=== PATIENT | female | born 1985 | race Asian ===

== ENCOUNTER 2018-10-16 11:48 | Emergency (ER) | payer OTHER ==
[2018-10-16 12:02] VITALS: BP 103/60
[2018-10-16 12:14] LABS: BILIRUBIN,URINE NEGATIVE (NEGATIVE); GLUCOSE, URINE (UA) NEGATIVE (NEGATIVE); KETONES,URINE (UA) NEGATIVE (NEGATIVE); LEUKOCYTE ESTERASE, URINE NEGATIVE (NEGATIVE); NITRITE,URINE NEGATIVE (NEGATIVE); OCCULT BLOOD,URINE TRACE-INTA (NEGATIVE); PH,URINE 6.5 PH (5.0-7.5); PROTEIN,URINE NEGATIVE (NEGATIVE); UROBILINOGEN,URINE 0.2 (NORMAL) E.U./dL (NORMAL)
[2018-10-16 12:17] LABS: CLARITY,URINE CLEAR (CLEAR)
[2018-10-16 12:26] LABS: BASOPHILS % (AUTO) 0.9 %; EOSINOPHILS % (AUTO) 0.5 %; LYMPHOCYTES % (AUTO) 20.9 %; MEAN CORPUSCULAR HEMOGLOBIN 30.7 pg (27.0-31.0); MEAN CORPUSCULAR HGB CONC 33.6 g/dL (32.0-36.0); MEAN CORPUSCULAR VOLUME 91.5 fL (81.0-99.0); MEAN PLATELET VOLUME 7.4 fL (7.9-10.8); MONOCYTES # (AUTO) 0.4 10^3/uL (0.0-1.0); MONOCYTES % (AUTO) 9.4 %; NEUTROPHILS # (AUTO) 3.3 10^3/uL (1.5-6.6); NEUTROPHILS % (AUTO) 68.3 %; PLT - PLATELET COUNT 213 10^3/uL (130-450); RED BLOOD COUNT 4.22 10^6/uL (4.20-5.40); RED CELL DISTRIBUTION WIDTH 13.6 % (12.0-15.0); WHITE BLOOD COUNT 4.8 x10^3/uL (4.8-10.8)
[2018-10-16 12:38] LABS: ALBUMIN 4.5 g/dL (3.2-5.5); ALBUMIN/GLOBULIN RATIO 1.6 (1.0-2.2); BILIRUBIN,TOTAL 0.9 mg/dL (0.2-1.0); CALCIUM 9.2 mg/dL (8.5-10.3); CREATININE 0.4 mg/dL (0.4-1.0); TOTAL PROTEIN 7.4 g/dL (6.7-8.2)
[2018-10-16] MEDS ORDERED: BUTALB/ACETAM/CAFF 50/325/40MG TABLET PO STA (13:02)
[2018-10-16] MEDS ORDERED: METOCLOPRAMIDE 10 MG TABLET PO STA (13:06)
--- NOTE | 2018-10-16 13:57 | Ultrasound Report ---
Reason: RUQ pain Procedure Date: 10/16/2018 Accession Number: [id number] / [id number] Procedure: US - Abdomen Limited CPT Code: FULL RESULT: EXAM: ABDOMEN ULTRASOUND LIMITED, RUQ EXAM DATE: 10/16/2018 01:33 PM. CLINICAL HISTORY: Right upper quadrant pain. COMPARISON: None. TECHNIQUE: Real-time scanning was performed with static images obtained. FINDINGS: Liver: Normal in size and echotexture. The right lobe of the liver measures at least 15.3 cm. Main portal vein flow: Hepatopetal. Gallbladder: Normal. No stones, wall thickening, or sonographic Kelly's sign. Biliary System: CBD measures 4 mm. No intrahepatic or extrahepatic ductal dilatation. Other: None. IMPRESSION: No biliary ductal dilation and no evidence of cholecystitis. RADIA
--- NOTE | 2018-10-16 14:06 | ED Physician Documentation ---
History of Present Illness - Stated complaint Stated Complaint: ABD PX,CARPIO,12 WEEKS PREG - Chief complaint Chief Complaint: Abd Pain - History obtained from History obtained from: Patient - History of Present Illness Timing: How many days ago (several days) Pain level max: 6 Pain level now: 5 - Additonal information Additional information: 33-year-old female presents to the emergency department right upper quadrant abdominal pain intermittently for the past few days. Also has intermittent headaches, usually frontal. She did get headaches before as well, but seems to have an increased frequency recently. No fevers. No trauma. No vomiting. Does have nausea. No diarrhea. No vaginal bleeding or discharge. She is approximately 12 weeks . 4 para 3. Review of Systems Constitutional: denies: Fever, Chills Skin: denies: Rash Musculoskeletal: denies: Neck pain, Back pain Neurologic: denies: Focal weakness, Numbness, Headache PD PAST MEDICAL HISTORY - Past Medical History Past Medical History: Yes Endocrine/Autoimmune: HyPOthyroidism - Past Surgical History Past Surgical History: No - Present Medications Home Medications: Ambulatory Orders Medication Instructions Recorded Confirmed Butalb/Acetaminophen/Caffeine 1 cap PO Q6H PRN #4 capsule 10/16/18 [Fioricet 50-300-40 mg Capsule] Levothyroxine Sodium [Synthroid] 137 mcg PO DAILY 10/16/18 10/16/18 Pnv No.95/Ferrous Fum/Folic AC 1 each PO DAILY 10/16/18 10/16/18 [ Caplet] - Allergies Allergies/Adverse Reactions: Allergies Allergy/AdvReac Type Severity Reaction Status Date / Time No Known Drug Allergies Allergy Verified 10/16/18 12:02 - Social History Does the pt smoke?: No Smoking Status: Never smoker Does the pt drink ETOH?: No Does the pt have substance abuse?: No PD ED PE NORMAL - Vitals Vital signs reviewed: Yes - General General: Alert and oriented X 3, No acute distress, Well developed/nourished - HEENT HEENT: Atraumatic, PERRL, EOMI, Ears normal, Moist mucous membranes - Neck Neck: Supple, no meningeal sign - Cardiac Cardiac: RRR, Strong equal pulses - Respiratory Respiratory: No respiratory distress, Clear bilaterally - Abdomen Abdomen: Soft, Non tender, Non distended - Derm Derm: Warm and dry - Neuro Neuro: Alert and oriented X 3, it lead 2-12 intact, No motor deficit, No sensory deficit, Normal speech Eye Opening: Spontaneous Motor: Obeys Commands Verbal: Oriented GCS Score: 15 - Psych Psych: Normal mood, Normal affect Results - Vitals Vitals: Vital Signs - 24 hr 10/16/18 10/16/18 11:59 15:10 Temperature 35.8 C L Heart Rate 95 67 Respiratory 15 14 Rate Blood Pressure 103/60 O2 Saturation 100 98 Oxygen O2 Source Room air - Labs Labs: Laboratory Tests 10/16/18 10/16/18 10/16/18 12:07 12:20 12:20 WBC 4.8 RBC 4.22 Hgb 13.0 Hct 38.6 MCV 91.5 MCH 30.7 MCHC 33.6 RDW 13.6 Plt Count 213 MPV 7.4 L Neut # (Auto) 3.3 Lymph # (Auto) 1.0 L [place] # (Auto) 0.4 Eos # (Auto) 0.0 Baso # (Auto) 0.0 Absolute Nucleated RBC 0.00 Nucleated RBC % 0.0 Sodium 136 Potassium 3.5 Chloride 102 Carbon Dioxide 26 Anion Gap 8.0 BUN 7 Creatinine 0.4 Estimated GFR (MDRD) 183 Glucose 92 Calcium 9.2 Total Bilirubin 0.9 AST 16 ALT 11 Alkaline Phosphatase 32 L Total Protein 7.4 Albumin 4.5 Globulin 2.9 Albumin/Globulin Ratio 1.6 Lipase 26 Urine Color YELLOW Urine Clarity CLEAR Urine pH 6.5 Ur Specific [place] 1.020 Urine Protein NEGATIVE Urine Glucose (UA) NEGATIVE Urine Ketones NEGATIVE Urine Occult Blood TRACE-INTA Urine Nitrite NEGATIVE Urine Bilirubin NEGATIVE Urine Urobilinogen 0.2 (NORMAL) Ur Leukocyte Esterase NEGATIVE Ur Microscopic Review NOT INDICATED Urine Culture Comments NOT INDICATED - Rads (name of study) Right upper quadrant ultrasound. Radiology: Prelim report reviewed, EMP read contemporaneously, See rad report (No acute abnormalities.) PD MEDICAL DECISION MAKING - ED course Complexity details: reviewed results, re-evaluated patient, considered differential, d/w patient ED course: Headache resolved with Fioricet. No evidence of subarachnoid hemorrhage, cavernous sinus thrombosis. No evidence of eclampsia or preeclampsia. Right upper quadrant pain is concerning for potential cholecystitis, therefore ultrasound was performed, no acute abnormalities. Normal lab testing. Normal urine. Will follow up with her doctor for further evaluation and care. She is well-appearing, nontoxic. Afebrile. Patient counseled regarding signs and symptoms for which I believe and urgent re-evaluation would be necessary. Patient with good understanding of and agreement to plan and is comfortable going home at this time This document was made in part using voice recognition software. While efforts are made to proofread this document, sound alike and grammatical errors may occur. Departure - Departure Disposition: 01 Home, Self Care Clinical Impression: Abdominal pain affecting Headache Qualifiers: Headache type: unspecified Headache chronicity pattern: acute headache Intractability: not intractable Qualified Code(s): R51 - Headache Condition: Good Instructions: ED Abdominal Pain Unkn Cause, ED Cephalgia Unspecified Follow-Up: Stan West ARNP [Primary Care Provider] - Within 1 week Prescriptions: Butalb/Acetaminophen/Caffeine [Fioricet 50-300-40 mg Capsule] 1 cap PO Q6H PRN #4 capsule PRN Reason: headaches Comments: Use the medications as prescribed. Fioricet should be used sparingly in for headaches. Return if you worsen. Discharge Date/Time: 10/16/18 15:11
== END 2018-10-16 15:11 | disposition home or self-care (01) ==
LOC: ED 11:48
DX: O26.891 Other specified pregnancy related conditions, first trimester (principal); Z3A.12 12 weeks gestation of pregnancy; R10.10 Upper abdominal pain, unspecified; R51 Headache; E03.9 Hypothyroidism, unspecified
CPT/HCPCS: 36415; 76705; 80053; 81003; 83690; 85025; 99283; A9270; 81001; 87086

== ENCOUNTER 2019-04-26 02:04 | Inpatient (IN) | payer OTHER ==
[2019-04-26] MEDS ORDERED: ONDANSETRON 4 MG/2 ML VIAL IVP PRN ×2 (02:55→07:48)
[2019-04-26] MEDS ORDERED: fentaNYL 100 MCG/2 ML VIAL IVP PRN ×2 (02:55→07:47)
[2019-04-26] MEDS ORDERED: SODIUM CHLORIDE FLUSH 0.9% 10 ML SYRINGE IVP PRN ×2 (02:55→07:48)
[2019-04-26] MEDS ORDERED: LACTATED RINGERS 1,000 ML IV SCH ×2 (03:00→08:00)
[2019-04-26] MEDS ORDERED: OXYTOCIN/DEXTROSE 5 % 30 UNIT/500 ML BAG IV ONE (03:25)
[2019-04-26 04:19] LABS: BASOPHILS % (AUTO) 0.7 %; EOSINOPHILS # (AUTO) 0.6 10^3/uL (0.0-0.7); HGB - HEMOGLOBIN 10.4 g/dL (12.0-16.0); LYMPHOCYTES # (AUTO) 1.1 10^3/uL (1.5-3.5); LYMPHOCYTES % (AUTO) 18.4 %; MEAN CORPUSCULAR HEMOGLOBIN 28.7 pg (27.0-31.0); MEAN CORPUSCULAR HGB CONC 32.4 g/dL (32.0-36.0); MEAN CORPUSCULAR VOLUME 88.4 fL (81.0-99.0); MEAN PLATELET VOLUME 10.3 fL (7.9-10.8); MONOCYTES # (AUTO) 0.7 10^3/uL (0.0-1.0); MONOCYTES % (AUTO) 10.7 %; NEUTROPHILS # (AUTO) 3.7 10^3/uL (1.5-6.6); NEUTROPHILS % (AUTO) 59.9 %; PLT - PLATELET COUNT 202 10^3/uL (130-450); RED BLOOD COUNT 3.63 10^6/uL (4.20-5.40); RED CELL DISTRIBUTION WIDTH 12.7 % (12.0-15.0); WHITE BLOOD COUNT 6.1 x10^3/uL (4.8-10.8)
--- NOTE | 2019-04-26 04:30 | HISTORY & PHYSICAL EXAMINATION ---
Admit History - Visit Reason Visit Reason: Contractions - : 4 Parity: 3 Premature: 0 Ectopic: 0 : 0 Care: positive: Other (Womens Care) Risk/History: positive: Other (Hypothyroidism) Complications This : positive: None Smoking Status: Never smoker - Mother's Labs Mother's Blood Type: positive: AB Mother's RH: positive: Positive GBS: positive: Group B Step Negative Rubella Status: positive: Immune - Other Maternal History Other Maternal History: Chief complaint: Contractions History chief complaint: Meds/Allgy - Home Medications Home Medications: Ambulatory Orders Medication Instructions Recorded Confirmed Butalb/Acetaminophen/Caffeine 1 cap PO Q6H PRN #4 capsule 10/16/18 [Fioricet 50-300-40 mg Capsule] Levothyroxine Sodium [Synthroid] 137 mcg PO DAILY 10/16/18 10/16/18 Pnv No.95/Ferrous Fum/Folic AC 1 each PO DAILY 10/16/18 10/16/18 [ Caplet] - Allergies Allergies/Adverse Reactions: Allergies Allergy/AdvReac Type Severity Reaction Status Date / Time No Known Drug Allergies Allergy Verified 10/16/18 12:02 Review of Systems - Constitutional Constitutional: denies: Fatigue, Fever, Chills, Malaise, Weakness - Eyes Eyes: denies: Pain, Irritation, Amaurosis, Blurred vision, Spots in vision, Field loss - Ears, Nose & Throat Ears, Nose & Throat: denies: Ear pain, Hearing loss, Hearing aids, Tinnitus, Vertigo, Nasal pain, Dentures, Sore throat, Hoarseness, Mouth lesions - Cardiovascular Cariovascular: denies: Irregular heart rate, Palpitations, Chest pain, Edema, Lightheadedness, Syncope - Respiratory Respiratory: denies: Cough, Sputum production, Wheezing, Snoring, Hemoptysis, Orthopnea - Gastrointestinal Gastrointestinal: denies: Abdominal pain, Abdominal distention, Diarrhea, Change in bowel habits, Rectal bleeding, Black stools - Genitourinary Genitourinary: denies: Dysuria, Urgency, Hematuria, Incontinence, Flank pain - Musculoskeletal Musculoskeletal: denies: Muscle pain, Muscle aches, Stiffness, Limited range of motion, Gout - Integumentary Integumentary: denies: Rash, Pruritis, Lesions, Lumps - Neurological Neurological: denies: General weakness, Focal weakness, Headache, Dizziness, Numbness - Psychiatric Psychiatric: denies: Depression, Anxiety, Suicidal, Delusions, Hallucinations - Endocrine Endocrine: denies: Polyuria, Polydypsia, Polyphagia, Intolerance to cold, Intolerance to heat - Hematologic/Lymphatic Hematologic/Lymphatic: denies: Anemia, Bruising, Petechiae, Blood clots, Lymphadenopathy Physical - Abdominal Exam Vital Signs: Temp Pulse Resp BP Pulse Ox 36.4 C L 75 22 101/59 L 04/26/19 02:21 04/26/19 02:21 04/26/19 02:21 04/26/19 02:21 Contraction Frequency (min/apart): 4 Contraction Intensity: positive: Strong Uterine Resting Tone: positive: Soft - Monitoring Heart Rate Baseline: 140's Strip Review: positive: Category I - Presentation Presentation: positive: Vertex - Vaginal Exam Membranes: positive: Membranes intact Dilation (in cm): 6 Effacement (%): 100 Station: positive: -1 Cervical Position: positive: Midposition Plan for Labor - Plan For Labor I expect patient to be DC'd or transferred within 96 hours.: Yes Plan for Labor: Impression: Active Labor at 39 weeks Hypothyroidism Plan: The patient is admitted in active labor with the usual labor orders. We ill continue to follow her closely
--- NOTE | 2019-04-26 05:47 | PROVIDER PROGRESS NOTE ---
Labor Progress Note - Uterine Monitoring Uterine Monitoring Mode: positive: External toco Contraction Frequency (min/apart): irregular Contraction Intensity: positive: Moderate to strong Uterine Resting Tone: positive: Soft - Monitoring Monitor Mode: positive: External ultrasound Heart Rate Baseline: 130's Accelerations: positive: Present, 15x15 Decelerations: positive: None Strip Review: positive: Category I - Vaginal Exam Dilation (in cm): 8 Effacement (%): 100 Station: -2 Cervical Position: Posterior - Labor Progress Note Labor Progress Note/Additional Text: Amniotomy with moderate amt clear fluid.
[2019-04-26] MEDS ORDERED: LIDOCAINE-MPF 1% 5 ML VIAL ONE (06:38)
[2019-04-26] MEDS ORDERED: LIDOCAINE-MPF 1% 30 ML VIAL ONE (06:39)
[2019-04-26] MEDS ORDERED: LIDOCAINE 1%-EPI 1:100000 20 ML MDV ONE (06:43)
[2019-04-26] MEDS ORDERED: OXYTOCIN/DEXTROSE 5 % 30 UNIT/500 ML BAG IV PRN ×2 (06:45→07:49)
[2019-04-26] MEDS ORDERED: HYDROcod/ACETAM 5/325 MG TABLET PO PRN ×2 (06:45→07:48)
--- NOTE | 2019-04-26 06:53 | DELIVERY NOTE ---
Delivery Note - Labor Labor: positive: Spontaneous - Delivery Method Delivery Method: positive: Spontaneous vaginal delivery - Presentation Presentation: positive: Vertex, BRI - left occiput anterior - Nuchal Cord Nuchal Cord: positive: None - Amniotic Fluid Description Amniotic Fluid Description: positive: Clear - Episiotomy Type Episiotomy Type: positive: None - Laceration Laceration: positive: None - Delivery Outcome Delivery Outcome: positive: Livebirth - [place] : positive: Placed in direct skin contact with mother sex: positive: Female : Apgars 9 and 10 - Cord Cord: positive: 3 vessels - Placenta Placenta: positive: Intact, Spontaneous - Estimated Blood Loss Estimated Blood Loss (in cc): 100 - Post Delivery Events Post Delivery Events: positive: No post delivery events - Delivery Comments (Free Text/Narrative) Delivery Comments (Free Text/Narrative): The patient reached complete with respect to cervical dilatation at 0629 hrs. She was pacheoc every 2 to 3 minutes. At 06 32 hours she delivered a viable female over an intact perineum. The placenta delivered intact with 3 vessels at 0636hrs. 30 units of Pitocin was given IV. The uterus was pacheco down firmly. The cervix and vaginal vault were inspected and found to be intact. The neonote is a viable female with Apgars of 9 and 10. Both the patient and the were allowed to remain in the LDRP in stable condition. EBL 100ml.
[2019-04-26] MEDS ORDERED: IBUPROFEN 600 MG TABLET PO SCH (07:00)
[2019-04-26] MEDS ORDERED: ACETAMINOPHEN 500 MG TABLET PO SCH (07:00)
[2019-04-26] MEDS ORDERED: LEVOTHYROXINE 75 MCG TABLET PO SCH (07:00)
--- NOTE | 2019-04-26 07:03 | Labor Flowsheet ---
Labor Flowsheet Datetime Report Generated by CPN: 04/26/2019 07:03 Datetime: 04/26/2019 07:01 VITAL SIGNS NBP Sys/Daniela/Mean (mmHg): 97 : 53 : 65 Pulse: 67 COMMUNICATION LaborFlag: Labor
[2019-04-26] MEDS: IBUPROFEN 600 MG TABLET PO SCH ×3 (07:42→20:25)
[2019-04-26] MEDS: LEVOTHYROXINE 75 MCG TABLET PO SCH (08:05)
[2019-04-26] MEDS ORDERED: SODIUM CHLORIDE FLUSH 0.9% 10 ML SYRINGE IVP SCH ×2 (09:00)
[2019-04-26] MEDS: ACETAMINOPHEN 500 MG TABLET PO SCH (16:39)
[2019-04-27] MEDS: ACETAMINOPHEN 500 MG TABLET PO SCH (00:06)
[2019-04-27] MEDS: IBUPROFEN 600 MG TABLET PO SCH ×2 (02:35→08:12)
--- NOTE | 2019-04-27 06:54 | PROVIDER PROGRESS NOTE ---
Subjective - Prog Note Date Prog Note Date: 04/27/19 Prog Note Time: 06:52 - Subjective Subjective: The patient is doing extremely well today. She is ambulating well is voiding without difficulty and breast-feeding without difficulty. She would like to be discharged home today. Objective - Vital Signs/Intake & Output Vital Signs: Vital Signs x48h Temp Pulse Resp BP Pulse Ox 04/27/19 02:53 36.5 C 54 L 18 93/47 L 100 Intake & Output: Intake & Output 04/24/19 04/25/19 04/26/19 04/27/19 23:59 23:59 23:59 23:59 Intake Total 480 Balance 480 - Objective Abdomen: positive: Non-tender (The uterus is firm and nontender approximately 2 fingerbreadths below the umbilicus. Lochia is light.), Nml bowel sounds - Lab Results Fish Bones: 04/26/19 04:10 Assessment/Plan - Problem List (1) Normal delivery at term Impression: Impression: Term delivery Plan: The patient will be discharged home. She was discharged home with both written and verbal instructions which included such things as: 1. No lifting, tampons douching or intercourse. 2. She is to report any temperatures greater than 100.4 or heavy vaginal bleeding 3. She is to continue her vitamins and increase her fluids 4. She is to use ibuprofen 600 mg p.o. 3 times daily PRN for pain. 5. She does not drive a car for the next 2 weeks 6. As long as she does well she will be seen in the office in 1 week for her initial visit.. She will be seen in the office in 6 weeks for her full visit.
[2019-04-27] MEDS: LEVOTHYROXINE 75 MCG TABLET PO SCH (07:58)
--- NOTE | 2019-04-27 08:15 | DISCHARGE SUMMARY ---
Physician: Steve Curtis DO DATE OF ADMISSION: 04/26/2019 DATE OF DISCHARGE: 04/27/2019 ADMITTING DIAGNOSES 1. Intrauterine at 39 weeks' gestation. 2. Active labor. 3. Hypothyroidism. DISCHARGE DIAGNOSES 1. Delivery at 39 weeks' gestation. 2. Hypothyroidism. PROCEDURES: Spontaneous assisted vaginal delivery. LABORATORIES: Admit CBC revealed WBC of 6.1, RBCs at 3.63, hemoglobin 10.4, hematocrit 32.1 with 202 platelets. HOSPITAL COURSE: Patient came to labor and delivery early in the morning on 04/26/2019. Upon arriva l, her cervix was 3 cm dilated and 100% effaced. She was admitted to and D. She followed a rapid multiparous labor curve and was found to be complete at approximately 0629 hours. There was a catego ry 1 EFM noted throughout the labor and delivery process. She went on to deliver a viable female chuyita yaya with Apgars of 9 and 10. Estimated blood loss was 100 mL. One is referred to the delivery note for full details. She and the were allowed to remain in the LDRP both in satisfactory condi tion. Patient is a 4, para 4 at this time. On her first day, she was ambulating well and tolerating diet well. She was without difficulty. Her lochia was light. She was without total complaint and wished to go home. It was felt that patient was stable and could be safely discharged home. DISCHARGE INSTRUCTIONS Patient discharged home with written and verbal instructions including such things as 1. She is to forego any lifting, tampons, douching or intercourse. 2. She is to report any temperatures greater than 100.4 or heavy vaginal bleeding. 3. She is not to drive a car for the next 2 weeks. 4. She is to continue her vitamins and increase her fluids. 5. She may use ibuprofen 600 mg p.o. t.i.d. p.r.n. for pain. 6. She will continue with her hypothyroid medications. 7. As long as she does well, she will be seen in the office in 1 week for an initial visi t and in 6 weeks for her full visit. TD: 04/27/2019 07:59
[2019-04-27 12:19] VITALS: BP 105/62
--- NOTE | 2019-04-27 13:48 | Labor Flowsheet ---
Labor Flowsheet Datetime Report Generated by CPN: 04/27/2019 13:48 Datetime: 04/27/2019 12:08 VITAL SIGNS NBP Sys/Daniela/Mean (mmHg): 105 : 62 : 71 Pulse: 61 COMMUNICATION LaborFlag: Labor Datetime: 04/26/2019 08:05 SpO2 (%): 100
== END 2019-04-27 13:20 | disposition home or self-care (01) | DRG 807 ==
LOC: WFO 02:04 → FBP 02:06 → WFO 06:49 → FBP 06:50 → UNDOADMIN 06:50
PROVIDERS: ADMIT Obstetrics & Gynecology; ATTEND Obstetrics & Gynecology
PROC: 10E0XZZ Delivery of Products of Conception, External Approach (ICD-10-PCS; principal; 2019-04-26)
PROC: 10907ZC Drainage of Amniotic Fluid, Therapeutic from Products of Conception, Via Natural or Artificial Opening (ICD-10-PCS; 2019-04-26)
DX: O99.284 Endocrine, nutritional and metabolic diseases complicating childbirth (principal); Z37.0 Single live birth; E03.9 Hypothyroidism, unspecified; Z3A.39 39 weeks gestation of pregnancy; Z79.899 Other long term (current) drug therapy
CPT/HCPCS: 36415; 85025; A9270; J7120

== ENCOUNTER 2019-08-29 11:23 | Emergency (ER) | payer OTHER ==
--- NOTE | 2019-08-29 13:53 | ED Physician Documentation ---
PD HPI CHEST PAIN - Stated complaint Stated Complaint: CHEST TIGHTNESS,LT SHOULDER PX - Chief complaint Chief Complaint: Cardiac - History obtained from History obtained from: Patient - History of Present Illness Timing - onset: Yesterday Timing - onset during: Light activity Timing - duration: Hours Timing - details: Intermittant (she has had some left chest pain at times for couple of weeks, not during exertion. Sometimes in mornings with waking. Has had it today for past couple hours. Not worse with breathing nor position.) Quality: Tightness, Aching Location: Left chest Radiation: Left upper extremity. No: Jaw, Neck Worsened by: No: Exertion, Inspiration, Movement, Palpation Associated symptoms: Feeling faint / dizzy. No: Shortness of air, Diaphoresis, Nausea, Palpitations, Cough Similar symptoms before: Has not had sx before Recently seen: Clinic (in office 3 weeks ago due to feeling of anxiety and fast heart rate. TSH was low so had her dose of synthroid lowered. Is feeling less of the fast heart and insomnia feeling overall since lower dose.) Review of Systems Constitutional: denies: Fever, Chills Nose: denies: Rhinorrhea / runny nose, Congestion Throat: denies: Sore throat Respiratory: denies: Cough GI: denies: Abdominal Pain, Nausea, Vomiting, Diarrhea Skin: denies: Rash, Lesions Neurologic: denies: Generalized weakness, Focal weakness, Numbness, Near syncope (but feels some lightheaded at times) PD PAST MEDICAL HISTORY - Past Medical History Past Medical History: Yes Cardiovascular: None Respiratory: None Neuro: None Endocrine/Autoimmune: HyPOthyroidism - Past Surgical History Past Surgical History: No - Present Medications Home Medications: Ambulatory Orders Medication Instructions Recorded Confirmed Levothyroxine Sodium [Synthroid] 100 mcg PO DAILY 10/16/18 10/16/18 Famotidine 20 mg PO DAILY #30 tablet 08/29/19 Mag Hydrox/Aluminum Hyd/Simeth 10 ml PO Q4H PRN #16 oz 08/29/19 [Mylanta Maximum Strength Liq] - Allergies Allergies/Adverse Reactions: Allergies Allergy/AdvReac Type Severity Reaction Status Date / Time No Known Drug Allergies Allergy Verified 08/29/19 11:49 - Social History Does the pt smoke?: No Smoking Status: Never smoker Does the pt drink ETOH?: No Does the pt have substance abuse?: No - Immunizations Immunizations are current?: Yes - POLST Patient has POLST: No PD ED PE NORMAL - Vitals Vital signs reviewed: Yes - General General: Alert and oriented X 3, No acute distress, Well developed/nourished - HEENT HEENT: Moist mucous membranes, Pharynx benign - Neck Neck: Supple, no meningeal sign, No adenopathy, No JVD, No bruit - Cardiac Cardiac: RRR, No murmur - Respiratory Respiratory: Clear bilaterally, Other (no chestwall tenderness) - Abdomen Abdomen: Soft, Non tender - Back Back: No CVA TTP - Derm Derm: Normal color, Warm and dry - Extremities Extremities: No tenderness to palpate, Normal ROM s pain, No edema, No calf tenderness / cord - Neuro Neuro: Alert and oriented X 3, No motor deficit, Normal speech Results - Vitals Vitals: Vital Signs - 24 hr 08/29/19 08/29/19 08/29/19 11:43 14:02 15:26 Temperature 36.7 C 36.7 C Heart Rate 76 79 76 Respiratory 18 16 16 Rate Blood Pressure 105/57 L 102/62 106/64 O2 Saturation 99 100 100 Oxygen O2 Source Room air - EKG (time done) 11:51 Rate: Rate (enter#) (76) Rhythm: NSR [place]: Normal Intervals: No: Normal MI (slightly short MI), Wide QRS QRS: Normal Ischemia: Normal ST segments. No: ST elevation c/w ischemia, ST depression - Labs Labs: Laboratory Tests 08/29/19 08/29/19 08/29/19 14:34 14:34 14:34 WBC 3.8 L RBC 4.37 Hgb 12.8 Hct 39.4 MCV 90.2 MCH 29.3 MCHC 32.5 RDW 13.4 Plt Count 239 MPV 9.6 Neut # (Auto) 1.6 Lymph # (Auto) 1.5 [place] # (Auto) 0.6 Eos # (Auto) 0.1 Baso # (Auto) 0.0 Absolute Nucleated RBC 0.00 Nucleated RBC % 0.0 Sodium 140 Potassium 3.8 Chloride 103 Carbon Dioxide 27 Anion Gap 10.0 BUN 13 Creatinine 0.7 Estimated GFR (MDRD) 95 Glucose 86 Calcium 9.4 Total Bilirubin 0.5 AST 16 ALT 13 Alkaline Phosphatase 40 L Troponin I High Sens < 2.3 L B-Natriuretic Peptide Total Protein 7.5 Albumin 4.7 Globulin 2.8 Albumin/Globulin Ratio 1.7 Lipase 33 08/29/19 14:34 WBC RBC Hgb Hct MCV MCH MCHC RDW Plt Count MPV Neut # (Auto) Lymph # (Auto) [place] # (Auto) Eos # (Auto) Baso # (Auto) Absolute Nucleated RBC Nucleated RBC % Sodium Potassium Chloride Carbon Dioxide Anion Gap BUN Creatinine Estimated GFR (MDRD) Glucose Calcium Total Bilirubin AST ALT Alkaline Phosphatase Troponin I High Sens B-Natriuretic Peptide 35 Total Protein Albumin Globulin Albumin/Globulin Ratio Lipase - Rads (name of study) chest xray Radiology: Prelim report reviewed (normal), See rad report PD MEDICAL DECISION MAKING - ED course Complexity details: reviewed results, re-evaluated patient, considered differential (consider ACS, lung related, muscular and GI. Does not have exertional nor pleuritic component. No chestwall tenderness. Did improve with GI cocktail, so presume some esophagitis/GERD. ), d/w patient Departure - Departure Disposition: 01 Home, Self Care Clinical Impression: Esophagitis Chest pain Qualifiers: Chest pain type: precordial pain Qualified Code(s): R07.2 - Precordial pain Condition: Stable Record reviewed to determine appropriate education?: Yes Instructions: ED GERD Follow-Up: Stan West ARNP [Primary Care Provider] - Prescriptions: Famotidine 20 mg PO DAILY #30 tablet Mag Hydrox/Aluminum Hyd/Simeth [Mylanta Maximum Strength Liq] 10 ml PO Q4H PRN #16 oz PRN Reason: Chest Pain Comments: Your heart and lung tests are normal. This does seem likely to be an irritation of the esophagus presumably from acid reflux. Famotidine acid reducing medicine daily for the next couple of weeks. Use antacids such as Mylanta or Maalox every 3-4 hours if needed for the chest discomfort. I would anticipate improvement in overall over the next few days. It may happen periodically. Discharge Date/Time: 08/29/19 15:26
[2019-08-29] MEDS ORDERED: LIDOCAINE VISCOUS 2% 15 ML UDC MM STA (14:17)
[2019-08-29] MEDS ORDERED: MAG HYDROX/AL HYDROX/SIMETH 30 ML UDC PO STA (14:17)
[2019-08-29 14:43] LABS: BASOPHILS % (AUTO) 1.1 %; EOSINOPHILS # (AUTO) 0.1 10^3/uL (0.0-0.7); EOSINOPHILS % (AUTO) 1.6 %; HGB - HEMOGLOBIN 12.8 g/dL (12.0-16.0); LYMPHOCYTES # (AUTO) 1.5 10^3/uL (1.5-3.5); LYMPHOCYTES % (AUTO) 40.6 %; MEAN CORPUSCULAR HEMOGLOBIN 29.3 pg (27.0-31.0); MEAN CORPUSCULAR HGB CONC 32.5 g/dL (32.0-36.0); MEAN CORPUSCULAR VOLUME 90.2 fL (81.0-99.0); MEAN PLATELET VOLUME 9.6 fL (7.9-10.8); MONOCYTES # (AUTO) 0.6 10^3/uL (0.0-1.0); MONOCYTES % (AUTO) 14.9 %; NEUTROPHILS # (AUTO) 1.6 10^3/uL (1.5-6.6); NEUTROPHILS % (AUTO) 41.8 %; PLT - PLATELET COUNT 239 10^3/uL (130-450); RED BLOOD COUNT 4.37 10^6/uL (4.20-5.40); RED CELL DISTRIBUTION WIDTH 13.4 % (12.0-15.0); WHITE BLOOD COUNT 3.8 x10^3/uL (4.8-10.8)
--- NOTE | 2019-08-29 14:45 | XRAY Report ---
Reason: left chest pain Procedure Date: 08/29/2019 Accession Number: [id number] / [id number] Procedure: XR - Chest 2 View X-Ray CPT Code: 69622 Final Report FULL RESULT: EXAM: CHEST RADIOGRAPHY EXAM DATE: 08/29/2019 02:31 PM. CLINICAL HISTORY: Left chest pain. COMPARISON: None. TECHNIQUE: 2 views. FINDINGS: Lungs/Pleura: No focal consolidation. No pleural effusion. No pneumothorax. Normal volumes. Mediastinum: Heart and mediastinal contours are normal. Other: None. IMPRESSION: No acute cardiopulmonary abnormality. RADIA
[2019-08-29 14:54] LABS: ALBUMIN 4.7 g/dL (3.2-5.5); ALBUMIN/GLOBULIN RATIO 1.7 (1.0-2.2); BILIRUBIN,TOTAL 0.5 mg/dL (0.2-1.0); CALCIUM 9.4 mg/dL (8.5-10.3); CREATININE 0.7 mg/dL (0.4-1.0); TOTAL PROTEIN 7.5 g/dL (6.7-8.2)
[2019-08-29 15:28] VITALS: BP 106/64
== END 2019-08-29 15:26 | disposition home or self-care (01) ==
LOC: ED 11:23
DX: R07.2 Precordial pain (principal); E03.9 Hypothyroidism, unspecified
CPT/HCPCS: 36415; 71046; 80053; 83690; 83880; 84484; 85025; 93005; 99284; A9270

== ENCOUNTER 2019-10-06 09:47 | Emergency (ER) | payer OTHER ==
[2019-10-06 10:01] VITALS: BP 103/58
--- NOTE | 2019-10-06 11:18 | ED Physician Documentation ---
PD HPI UPPER EXT INJURY - Stated complaint Stated Complaint: RT ARM PX - Chief complaint Chief Complaint: Ext Problem - History obtained from History obtained from: Patient - History of Present Illness Location: Right, Elbow Type of injury: Other (veinapuncture) Timing - onset: How many weeks ago (3) Timing - duration: Weeks (3) Timing - details: Gradual onset, Still present Improved by: Rest Worsened by: Moving, Palpating Associated symptoms: Other (tender over the vein). No: Weakness, Numbness, Tingling, Swelling, Discolored Contributing factors: No: Anticoagulated Similar symptoms before: Has not had sx before Recently seen: Emergency Dept - Additonal information Additional information: 34-year-old female with history of thyroid disorder had a phlebotomy done 3 weeks ago in the right antecubital and she is subsequently developed pain and tenderness to the vein in the right arm. There is a palpable cord and this is tender. The remainder of her veins are not distended. Her arm is not swollen. She is able to flex and extend the elbow without difficulty. Review of Systems Constitutional: denies: Fever Eyes: denies: Decreased vision Ears: denies: Ear pain Nose: denies: Congestion Throat: denies: Sore throat Cardiac: denies: Chest pain / pressure, Palpitations Respiratory: denies: Dyspnea, Cough GI: denies: Vomiting PD PAST MEDICAL HISTORY - Past Medical History Past Medical History: Yes Cardiovascular: None Respiratory: None Neuro: None Endocrine/Autoimmune: HyPOthyroidism - Past Surgical History Past Surgical History: No - Present Medications Home Medications: Ambulatory Orders Medication Instructions Recorded Confirmed Levothyroxine Sodium [Synthroid] 100 mcg PO DAILY 10/16/18 10/16/18 Famotidine 20 mg PO DAILY #30 tablet 08/29/19 Mag Hydrox/Aluminum Hyd/Simeth 10 ml PO Q4H PRN #16 oz 08/29/19 [Mylanta Maximum Strength Liq] - Allergies Allergies/Adverse Reactions: Allergies Allergy/AdvReac Type Severity Reaction Status Date / Time No Known Drug Allergies Allergy Verified 10/06/19 10:00 - Social History Does the pt smoke?: No Smoking Status: Never smoker Does the pt drink ETOH?: No Does the pt have substance abuse?: No - Immunizations Immunizations are current?: Yes - POLST Patient has POLST: No PD ED PE NORMAL - Vitals Vital signs reviewed: Yes (normal ) - General General: Alert and oriented X 3, No acute distress, Well developed/nourished - HEENT HEENT: Atraumatic, PERRL, EOMI - Respiratory Respiratory: No respiratory distress - Derm Derm: Normal color, Warm and dry, No rash - Extremities Extremities: Other (There is A palpable cord over the right antecubital. It extends distally into the forearm and proximally up the arm. The area is tender there is no swelling or erythema associated with it and the remainder of the veins on the hand and arm are not distended. There is no significant swelling associated with this. Distal neurovascular components are intact.) - Neuro Neuro: Alert and oriented X 3, combat control 2-12 intact, No motor deficit, No sensory deficit, Normal speech Eye Opening: Spontaneous Motor: Obeys Commands Verbal: Oriented GCS Score: 15 - Psych Psych: Normal mood, Normal affect Results - Vitals Vitals: Vital Signs - 24 hr 10/06/19 09:56 Temperature 36.4 C L Heart Rate 69 Respiratory 14 Rate Blood Pressure 103/58 L O2 Saturation 100 Oxygen O2 Source Room air - Rads (name of study) duplex ue Radiology: Prelim report reviewed (Impression: 1. No evidence for DVT in the upper extremity. 2 The area of concern corresponds to a segment of venous wall thickening in the region of the basilic vein. Flow was noted. Thrombosis is seen. Mild to moderate superficial phlebitis is likely.), EMP read indepedently, See rad report PD MEDICAL DECISION MAKING - ED course Complexity details: considered differential, d/w patient ED course: 34-year-old female appears to have developed a superficial venous thrombophlebitis after a phlebotomy. Symptoms have persisted for weeks and she is here now for evaluation after being evaluated by telehealth. We will perform a duplex exam of the right upper extremity to rule out extension to DVT. Departure - Departure Disposition: 01 Home, Self Care Clinical Impression: Superficial thrombophlebitis Qualifiers: Superficial thrombophlebitis-Involved body area: upper extremity Laterality: right Qualified Code(s): I80.8 - Phlebitis and thrombophlebitis of other sites Condition: Stable Instructions: ED Phlebitis Superficial Follow-Up: Stan West ARNP [Primary Care Provider] -
--- NOTE | 2019-10-06 14:06 | Ultrasound Report ---
Reason: upper ext superficial thrombophlebitis Procedure Date: 10/06/2019 Accession Number: [id number] / [id number] Procedure: US - Duplex Ext Veins Right CPT Code: Final Report FULL RESULT: EXAM: RIGHT UPPER EXTREMITY VENOUS ULTRASOUND EXAM DATE: 10/06/2019 01:55 PM. CLINICAL HISTORY: Upper extremity superficial thrombophlebitis. COMPARISON: None. TECHNIQUE: Real-time sonographic vascular imaging was performed by the applications engineer through the upper extremity utilizing both color-flow and Doppler spectral analysis. Multiple billing representative static images were saved for review. FINDINGS: Internal Jugular Vein (IJV): Normal. Subclavian Vein (SCV): Normal. Axillary Vein : Normal. Cephalic Vein (superficial vein): Normal. Basilic Vein (superficial vein): In the area of concern in the antecubital fossa, there is a segment of concern which is about 5 cm in length, this is thick-walled. No evidence for superficial thrombus is present. Flow is present, and there is augmentation as well. Brachial Vein: Normal. Contralateral Side: Subclavian Vein: Normal. Other: None. IMPRESSION: 1. No evidence for DVT in the upper extremity. 2. The area of concern corresponds to a segment of venous wall thickening in the region of the basilic vein. Flow is noted. No thrombosis is seen. Mild to moderate superficial phlebitis is likely. RADIA
== END 2019-10-06 14:33 | disposition home or self-care (01) ==
LOC: ED 09:47
DX: I80.8 Phlebitis and thrombophlebitis of other sites (principal)
CPT/HCPCS: 99284

== ENCOUNTER 2019-11-21 11:33 | Emergency (ER) | payer OTHER ==
--- NOTE | 2019-11-21 13:09 | ED Physician Documentation ---
PD HPI CHEST PAIN - Stated complaint Stated Complaint: L SIDE PX - Chief complaint Chief Complaint: General - History obtained from History obtained from: Patient - History of Present Illness Timing - onset: Last night Timing - onset during: Rest Timing - duration: Hours Timing - details: Abrupt onset, Still present, Waxing and waning Quality: Pressure Location: Left chest Radiation: Back Improved by: Nothing Worsened by: Other (nothing) Associated symptoms: Diaphoresis (briefly last night.). No: Shortness of air, Nausea, Vomiting, Feeling faint / dizzy, General Weakness, Palpitations, Cough Similar symptoms before: Has not had sx before Recently seen: Not recently seen Review of Systems Constitutional: denies: Fever Eyes: denies: Decreased vision Ears: denies: Ear pain Nose: denies: Rhinorrhea / runny nose, Congestion Throat: denies: Sore throat Cardiac: reports: Chest pain / pressure. denies: Palpitations, Pedal edema, Calf pain Respiratory: denies: Dyspnea, Cough GI: denies: Abdominal Pain, Nausea, Vomiting : denies: Dysuria PD PAST MEDICAL HISTORY - Past Medical History Cardiovascular: None Respiratory: None Neuro: None Endocrine/Autoimmune: HyPOthyroidism - Past Surgical History Past Surgical History: No - Present Medications Home Medications: Ambulatory Orders Medication Instructions Recorded Confirmed Levothyroxine Sodium [Synthroid] 100 mcg PO DAILY 10/16/18 10/16/18 - Allergies Allergies/Adverse Reactions: Allergies Allergy/AdvReac Type Severity Reaction Status Date / Time No Known Drug Allergies Allergy Verified 11/21/19 11:56 - Social History Does the pt smoke?: No Smoking Status: Never smoker Does the pt drink ETOH?: No Does the pt have substance abuse?: No - Immunizations Immunizations are current?: Yes - POLST Patient has POLST: No PD ED PE NORMAL - Vitals Vital signs reviewed: Yes (normal ) - General General: Alert and oriented X 3, No acute distress, Well developed/nourished - HEENT HEENT: Atraumatic, PERRL, EOMI - Neck Neck: Supple, no meningeal sign, No bony TTP - Cardiac Cardiac: RRR, No murmur - Respiratory Respiratory: No respiratory distress, Clear bilaterally - Abdomen Abdomen: Normal bowel sounds, Soft, Non tender, Non distended, No organomegaly - Back Back: No CVA TTP, No spinal TTP - Derm Derm: Normal color, Warm and dry, No rash - Extremities Extremities: No deformity, No edema, No calf tenderness / cord - Neuro Neuro: Alert and oriented X 3, bearing inspector 2-12 intact, No motor deficit, No sensory deficit, Normal speech Eye Opening: Spontaneous Motor: Obeys Commands Verbal: Oriented GCS Score: 15 - Psych Psych: Normal mood, Normal affect Results - Vitals Vitals: Vital Signs - 24 hr 11/21/19 11/21/19 11:53 13:32 Temperature 36.8 C Heart Rate 76 63 Respiratory 18 16 Rate Blood Pressure 109/69 100/64 O2 Saturation 99 99 Oxygen O2 Source Room air - EKG (time done) 2101 Rate: Rate (enter#) (72) Rhythm: NSR Compare to prior EKG: Unchanged from prior EKG (SPT 08-29-2019 no sig change) Computer interpretation: Agree with computer - Labs Labs: Laboratory Tests 11/21/19 11/21/19 11/21/19 13:15 13:15 13:25 WBC 3.7 L RBC 4.37 Hgb 13.0 Hct 40.9 MCV 93.6 MCH 29.7 MCHC 31.8 L RDW 12.7 Plt Count 207 MPV 10.8 Neut # (Auto) 1.9 Lymph # (Auto) 1.3 L Bee # (Auto) 0.5 Eos # (Auto) 0.1 Baso # (Auto) 0.0 Absolute Nucleated RBC 0.00 Nucleated RBC % 0.0 Sodium 142 Potassium 3.8 Chloride 106 Carbon Dioxide 28 Anion Gap 8.0 BUN 8 Creatinine 0.6 Estimated GFR (MDRD) 114 Glucose 88 Calcium 10.0 Total Bilirubin 0.8 AST 17 ALT 15 Alkaline Phosphatase 55 Total Protein 7.5 Albumin 4.9 Globulin 2.6 Albumin/Globulin Ratio 1.9 Lipase 28 Urine Color LT. YELLOW Urine Clarity CLEAR Urine pH 7.5 Ur Specific Haslet 1.010 Urine Protein NEGATIVE Urine Glucose (UA) NEGATIVE Urine Ketones NEGATIVE Urine Occult Blood NEGATIVE Urine Nitrite NEGATIVE Urine Bilirubin NEGATIVE Urine Urobilinogen 0.2 (NORMAL) Ur Leukocyte Esterase NEGATIVE Ur Microscopic Review NOT INDICATED Urine Culture Comments NOT INDICATED Urine HCG, Qual NEGATIVE - Rads (name of study) CT ab/pel w/o Radiology: Prelim report reviewed (Impression: No urinary tract stones or obstruction.), EMP read indepedently, See rad report PD MEDICAL DECISION MAKING - ED course Complexity details: reviewed old records, reviewed results, re-evaluated patient, considered differential, d/w patient ED course: 34-year-old female with left flank pain that does not appear modifiable does not have evidence of ureteral lithiasis on CT examination. She does not have hematuria or evidence of urinary pathology. She does not have a tender kidney. She did have the start of her symptoms with a hard cough and I suspect this may still be a musculoskeletal type injury. Departure - Departure Disposition: 01 Home, Self Care Clinical Impression: Acute flank pain Condition: Stable Instructions: ED Flank Pain Uncertain Cause Follow-Up: Stan West ARNP [Primary Care Provider] -
[2019-11-21 13:37] LABS: ALBUMIN 4.9 g/dL (3.2-5.5); ALBUMIN/GLOBULIN RATIO 1.9 (1.0-2.2); BASOPHILS % (AUTO) 1.1 %; BILIRUBIN,TOTAL 0.8 mg/dL (0.2-1.0); CREATININE 0.6 mg/dL (0.4-1.0); EOSINOPHILS # (AUTO) 0.1 10^3/uL (0.0-0.7); EOSINOPHILS % (AUTO) 2.1 %; LYMPHOCYTES # (AUTO) 1.3 10^3/uL (1.5-3.5); LYMPHOCYTES % (AUTO) 34.2 %; MEAN CORPUSCULAR HEMOGLOBIN 29.7 pg (27.0-31.0); MEAN CORPUSCULAR HGB CONC 31.8 g/dL (32.0-36.0); MEAN CORPUSCULAR VOLUME 93.6 fL (81.0-99.0); MEAN PLATELET VOLUME 10.8 fL (7.9-10.8); MONOCYTES # (AUTO) 0.5 10^3/uL (0.0-1.0); MONOCYTES % (AUTO) 12.8 %; NEUTROPHILS # (AUTO) 1.9 10^3/uL (1.5-6.6); NEUTROPHILS % (AUTO) 49.8 %; PLT - PLATELET COUNT 207 10^3/uL (130-450); RED BLOOD COUNT 4.37 10^6/uL (4.20-5.40); RED CELL DISTRIBUTION WIDTH 12.7 % (12.0-15.0); TOTAL PROTEIN 7.5 g/dL (6.7-8.2); WHITE BLOOD COUNT 3.7 x10^3/uL (4.8-10.8)
[2019-11-21 13:39] LABS: BILIRUBIN,URINE NEGATIVE (NEGATIVE); GLUCOSE, URINE (UA) NEGATIVE (NEGATIVE); KETONES,URINE (UA) NEGATIVE (NEGATIVE); LEUKOCYTE ESTERASE, URINE NEGATIVE (NEGATIVE); NITRITE,URINE NEGATIVE (NEGATIVE); OCCULT BLOOD,URINE NEGATIVE (NEGATIVE); PH,URINE 7.5 PH (5.0-7.5); PROTEIN,URINE NEGATIVE (NEGATIVE); UROBILINOGEN,URINE 0.2 (NORMAL) E.U./dL (NORMAL)
[2019-11-21 13:42] LABS: CLARITY,URINE CLEAR (CLEAR); HCG UR QUAL NEGATIVE
[2019-11-21] MEDS ORDERED: KETOROLAC 30 MG/ML VIAL IVP STA (14:09)
--- NOTE | 2019-11-21 14:56 | CT Report ---
Reason: L flank pain Procedure Date: 11/21/2019 Accession Number: [id number] / [id number] Procedure: CT - Abdomen/Pelvis WO CPT Code: Final Report FULL RESULT: EXAM: CT ABDOMEN AND PELVIS (CT KUB) EXAM DATE: 11/21/2019 01:58 PM. CLINICAL HISTORY: Left flank pain, left upper quadrant pain. COMPARISONS: DUPLEX EXT VEINS RIGHT 10/06/2019 12:48 PM CHEST 2 VIEW 08/29/2019 2:25 PM ABDOMEN LIMITED 10/16/2018 1:12 PM. TECHNIQUE: Routine axial helical CT imaging was performed through the abdomen and pelvis without IV contrast. Reconstructions: Coronal and sagittal. In accordance with CT protocol optimization, one or more of the following dose reduction techniques were utilized for this exam: automated exposure control, adjustment of mA and/or KV based on patient size, or use of iterative reconstructive technique. FINDINGS: Evaluation of solid abdominal organs is limited without intravenous contrast. Lung Bases: Unremarkable. Right Kidney/Ureter: No stone, hydronephrosis, or hydroureter. No perinephric fat stranding. Left Kidney/Ureter: No stone, hydronephrosis, or hydroureter. No perinephric fat stranding. Other Solid Organs: Noncontrast images of the solid organs are grossly unremarkable. Gallbladder/Bile Ducts: Unremarkable. Peritoneal Cavity: Trace free fluid in the posterior pelvis. No free air. No evidence of a bowel obstruction. Pelvic Organs: No bladder stone or wall thickening. Noncontrast images of the visualized pelvic organs are unremarkable. Retroperitoneum: Linear calcification in the adjacent to the inferior vena cava. Normal caliber aorta. Other: None. IMPRESSION: No urinary tract stones or obstruction. RADIA
[2019-11-21 15:02] VITALS: BP 109/69
[2019-11-21] MEDS ORDERED: LIDOCAINE VISCOUS 2% 15 ML UDC MM STA (15:11)
[2019-11-21] MEDS ORDERED: MAG HYDROX/AL HYDROX/SIMETH 30 ML UDC PO STA (15:12)
== END 2019-11-21 15:21 | disposition home or self-care (01) ==
LOC: ED 11:33
DX: R10.9 Unspecified abdominal pain (principal); R07.89 Other chest pain
CPT/HCPCS: 36415; 74176; 80053; 81003; 81025; 83690; 85025; 93005; 96374; 99284; A9270; 81001; 87086

== ENCOUNTER 2020-01-18 06:59 | Day surgery (SDC) | payer OTHER ==
[2020-01-18] MEDS ORDERED: DEXAMETHASONE 4 MG/ML VIAL IVP ONE (07:00)
[2020-01-18] MEDS ORDERED: ONDANSETRON 4 MG/2 ML VIAL IVP ONE (07:00)
[2020-01-18] MEDS ORDERED: KETOROLAC 30 MG/ML VIAL IVP ONE (07:00)
[2020-01-18] MEDS ORDERED: LIDOCAINE-MPF 2% 5 ML VIAL IM ONE (07:00)
[2020-01-18] MEDS ORDERED: PROPOFOL 200 MG/20 ML VIAL IVP ONE (07:00)
[2020-01-18] MEDS ORDERED: LACTATED RINGERS 1,000 ML IV ONE ×2 (07:00→08:11)
[2020-01-18] MEDS ORDERED: fentaNYL 100 MCG/2 ML VIAL IVP ONE (07:00)
[2020-01-18] MEDS ORDERED: ROCURONIUM 50 MG/5 ML VIAL IVP ONE (07:00)
[2020-01-18 07:21] LABS: HCG UR QUAL NEGATIVE
--- NOTE | 2020-01-18 07:38 | ANESTHESIA ---
Pre-Anesthesia VS, & Labs - Diagnosis undesired fertility - Procedure laparoscopic salpingectomy Vital Signs: Temp Pulse Resp BP Pulse Ox 36.6 C 69 16 100/62 99 01/18/20 07:22 01/18/20 07:22 01/18/20 07:22 01/18/20 07:22 01/18/20 07:22 Height 5 ft 6.14 in Weight (kg) 58.9 kg Body Mass Index 20.9 - NPO Other (sips of clears 0500) - Is Patient ?: No - Lab Results Lab results reviewed: Yes Home Medications and Allergies Home Medications: Ambulatory Orders Esomeprazole Magnesium [Nexium 24Hr] 20 mg PO DAILY 01/04/20 Sertraline [Zoloft] 75 mg PO DAILY 01/04/20 Levothyroxine Sodium [Synthroid] 100 mcg PO DAILY 10/16/18 Esomeprazole Magnesium [Nexium 24Hr] 20 mg PO DAILY 01/04/20 Sertraline [Zoloft] 75 mg PO DAILY 01/04/20 Allergies/Adverse Reactions: Allergies Allergy/AdvReac Type Severity Reaction Status Date / Time No Known Drug Allergies Allergy Verified 01/04/20 15:10 Anes History & Medical History - Anesthetic History Anesthesia Complications: reports: No previous complications Family history of Anesthesia Complications: Denies Family history of Malignant Hyperthermia: Denies - Medical History Cardiovascular: reports: None Pulmonary: reports: None Gastrointestinal: reports: GERD Urinary: reports: None Neuro: reports: None Musculoskeletal: reports: None Endocrine/Autoimmune: reports: HyPOthyroidism Skin: reports: None Smoking Status: Never smoker - Surgical History General: EGD Exam General: Alert, Oriented x3, Cooperative Mouth Openin Fingerbreadth Neck Mobility: Normal Mallampati classification: II Thyromental Distance: 4-6 cm Respiratory: Lungs clear, Normal breath sounds, No respiratory distress Cardiovascular: Regular rate Neurological: Normal speech Mental/Cognitive Status: Alert/Oriented X3, Normal for patient Cognitive Status: Within normal limits Plan Anesthesia Type: General Consent for Procedure(s) Verified and Reviewed: Yes Code Status: Attempt Resuscitation ASA classification: 2-Mild systemic disease Is this case an emergency?: No
[2020-01-18] MEDS ORDERED: BUPIVACAINE 0.5% PF 30 ML VIAL INFIL ONE ×2 (08:11)
[2020-01-18] MEDS ORDERED: BUPIVACAINE 0.5% PF 30 ML VIAL ONE (08:14)
[2020-01-18] MEDS ORDERED: SUGAMMADEX 200 MG/2 ML VIAL IVP ONE (09:23)
[2020-01-18] MEDS ORDERED: HYDROcod/ACETAM 10 MG/325 MG TABLET PO PRN (09:30)
--- NOTE | 2020-01-18 09:35 | OPERATIVE REPORT ---
Operative Report - General Procedure Date: 01/18/20 Planned Procedure: Laparoscopic bilateral salpingectomies Pre-Op Diagnosis: Undesired fertility Procedure Performed: As above Post Op Diagnosis: Same as above - Procedure Note Primary Surgeon: Mala Secondary Surgeon: Piter Anesthesia Provider: Lew Anesthesia Technique: General ET tube Pathology: Portions of both fallopian tubes IV Fluids (mL): 700 Estimated Blood Loss (mL): 5 Indications: Undesired fertility Findings: Exam under anesthesia: The uterus was of normal size, shape, and consistency, and retroverted. The adnexa were benign. Operative findings: The uterus, tubes, and ovaries were all within normal limits. There was menstrual blood in the anterior and posterior cul-de-sacs consistent with mense s. The anterior and posterior cul-de-sacs and both ovarian fossae were clear. The appendix was searched for, but not found. The liver edge and gallbladder appeared normal. Complications: None - Other Other Information/Narrative: The patient was taken to the operating room, where general endotracheal anesthesia was administered without difficulty. She was then positioned in the low dorsal lithotomy position with her lower extremities in Yellow Fin stirrups. Vagina, perineum, and abdomen were then prepped and draped in a sterile fashion. Procedure Time-Out was then performed. A sterile bivalve speculum was then inserted into the vagina. A HUMI uterine manipulator was placed. The speculum was then removed from the vagina. Attention was then turned to the laparoscopy. 0.5% Marcaine was injected infraumbilically, then a 7-mm horizontal skin incision made. Once 2 L of gas was instilled, a 0-degree, 5 mm laparoscope was inserted into a 5 mm trocar and passed through the anterior layers of the abdominal wall using Optiview technique. Carbon dioxide gas insufflation was then performed with appropriate opening pressures noted. The abdomen was visualized, then 2 additional ports placed in the right and left lower quadrants, first injecting local anesthetic, then placing 5 mm ports. The patient was placed into Trendelenberg and bowel swept out of the cul-de-sac. The right distal fallopian tube was then grasped and pulled anteriorly and superiorly. The tubo-ovarian ligament was then crossclamped, cauterized, and cut using the Ligasure, then the mesosalpinx was crossclamped, cauterized, and cut, completely the right fallopian tube from the uterus at the cornu. The right fallopian tube was then removed from the abdomen. The left distal fallopian tube was then grasped and pulled anteriorly and superiorly. The tubo-ovarian pedicle was then crossclamped, cauterized, and cut, the distal left fallopian tube from the left ovary. The mesosalpinx was then serially cauterized and cut until the cornu was reached, then the fallopian tube was crossclamped, cauterized, and cut. The surgical sites appeared hemostatic. The left fallopian tube was removed from the abdomen. At this point the laparoscopy was deemed complete, and all trochars were removed from the abdomen. The carbon dioxide gas was then allowed to escape. The incisions were then closed with 4-0 Monocryl in a subcuticular fashion followed by Dermabond skin adhesive. The HUMI was then removed. The sterile bivalve speculum was then reinserted to ensure that the tenaculum site was hemostatic. No bleeding was noted, and the speculum was then removed. At this point the procedure was deemed complete. The patient was then replaced supine, awakened, extubated, and transferred to the PACU in stable condition.
[2020-01-18] MEDS ORDERED: ACETAMINOPHEN 1,000 MG/100 ML 100 ML IV ONE (10:03)
[2020-01-18] MEDS ORDERED: HYDROcod/ACETAM 10 MG/325 MG TABLET ONE (10:10)
[2020-01-18 10:30] VITALS: BP 109/68
== END 2020-01-18 07:00 | disposition home or self-care (01) ==
LOC: SDS 06:59
PROVIDERS: ATTEND Obstetrics & Gynecology
PROC: 0UT74ZZ Resection of Bilateral Fallopian Tubes, Percutaneous Endoscopic Approach (ICD-10-PCS; principal; 2020-01-18 08:15)
DX: Z30.2 Encounter for sterilization (principal)
CPT/HCPCS: 81025